=== PATIENT | male | born 1995 | race Asian ===

== ENCOUNTER 2024-01-17 18:13 | Emergency (ER) | payer MEDICAID ==
[~2024-01-17] VITALS: Ht 177.8 cm; Wt 94.0 kg
[2024-01-17 18:16] VITALS: O2SAT 98
[2024-01-17] MEDS: ONDANSETRON HCL 4MG/2ML INJ IV STA (19:01)
[2024-01-17] MEDS: SODIUM CHLORIDE 0.9% 1,000 ML IV ONE (19:02)
[2024-01-17 19:10] LABS: BASOPHILS % 0.3 % (0.0-2.0); EOSINOPHILS % 0.6 % (0.0-5.0); HEMATOCRIT. 46.1 % (42.0-52.0); MEAN CORPUSCULAR HEMOGLOBIN 29.3 pg (28.0-32.0); MEAN CORPUSCULAR HGB CONC 34.6 g/dL (31.0-37.0); MEAN CORPUSCULAR VOLUME 84.5 fL (80.0-94.0); MEAN PLATELET VOLUME 8.1 fl (7.4-10.4); MONOCYTES % 4.7 % (2.0-8.0); NEUTROPHILS % 75.4 % (40.0-76.0); PLATELET 250 x1000/uL (130-400); RED BLOOD CELL COUNT 5.46 mill/uL (4.7-6.1); RED CELL DISTRIBUTION WIDTH 13.4 % (11.6-14.6); WHITE BLOOD COUNT 10.6 x1000/uL (4.5-11.0)
[2024-01-17 19:26] LABS: CHLORIDE 97 mEq/L (98-107); POTASSIUM 3.6 mEq/L (3.5-5.1); SODIUM 132 mEq/L (136-145)
[2024-01-17 19:27] LABS: CALCIUM 10.3 mg/dL (8.7-10.4); CARBON DIOXIDE 25 mEq/L (21-32)
[2024-01-17 19:32] LABS: ETHANOL BLOOD < 10 mg/dL (<10); GLUCOSE 165 mg/dL (70-105); TROPONIN I HIGH SENSITIVITY 5 ng/L (3.0-53); UREA NITROGEN BLOOD 15 mg/dL (9-23)
[2024-01-17 19:34] LABS: ALANINE AMINOTRANSFERASE 38 IU/L (10-49); ALBUMIN 4.6 g/dL (3.2-4.8); ASPARTATE AMINOTRANSFERASE 27 IU/L (<34); BILIRUBIN TOTAL 1.2 mg/dL (0.1-1.0); PROTEIN TOTAL 7.7 g/dL (6.0-8.3)
[2024-01-17] MEDS ORDERED: ONDA4TAB11 PO (20:27)
[2024-01-17 21:30] VITALS: BP 150/73; PULSE 90; RESP 16; TEMP 98.1
== END 2024-01-17 21:39 | disposition home or self-care (01) ==
LOC: ER 18:13
DX: R07.89 Other chest pain (principal); I10 Essential (primary) hypertension; R11.2 Nausea with vomiting, unspecified
CPT/HCPCS: 80053; 80320; 83880; 83690; 85025; 84484; 36415; 71045; 93005; 96361; 96374; 99285; J2405; J7030; Z7610; G0480